=== PATIENT | female | born 1960 | race Caucasian/White ===

== ENCOUNTER 2020-12-11 12:22 | Emergency (ER) | payer MEDICARE, MEDICAID, SELFPAY ==
[2020-12-11 12:38] VITALS: BP 156/88; PULSE 69; RESP 16; TEMP 36.9; O2SAT 96; BMI 48.1
--- NOTE | 2020-12-11 13:56 | ED_ITS ---
HPI - Wound/Laceration General Chief Complaint: Wound/Laceration Stated Complaint: burn on abdomen Time Seen by Provider: 12/11/20 13:56 Source: patient Mode of arrival: ambulatory History of Present Illness HPI narrative: 60-year-old female with past medical history AFib, anxiety, asthma, COPD, depression, hypertension, HLD, panic disorder, presenting to the ED complaining of multiple diaz to abdomen S/P cooking fried chopra with hot grea se 1 week ago. Reports one area with continued pain, and yellow drainage. Also reports chills. Denies fever, diaz to other area Onset (ago): week(s) Related Data Previous Rx's Medication Instructions Recorded cephalexin 500 mg capsule 500 mg PO QID 7 Days #28 cap 12/11/20 silver sulfadiazine 1 % topical 1 appl TOPICAL BID #50 g 12/11/20 cream (Silvadene) Allergies Allergy/AdvReac Type Severity Reaction Status Date / Time aspirin [ASA] Allergy Severe SHORTNESS Unverified 01/01/20 14:55 OF BREATH bee pollen [BEE STINGS] Allergy Severe ANAPHYLAXIS Unverified 01/01/20 14:55 chlorzoxazone Allergy Severe HIVES Unverified 01/01/20 14:55 [From [facility]] Review of Systems Review of Systems: Constitutional: No Fever, No Chills Cardiovascular: No Chest Pain, No SOB Gastrointestinal: No Nausea, No Vomiting, No Abdominal pain Musculoskeletal: No joint pain Skin: + Skin Lesions, No rash Neuro: No Weakness Yes all other systems are reviewed and are negative PMFSH Past Medical History Attestation statement: The following information was validated with the patient. Medical History (Updated 12/11/20 @ 13:57 by ALLIE Becerra) Afib Aneurysm Anxiety Asthma COPD (chronic obstructive pulmonary disease) Depression HTN (hypertension) Hypercholesterolemia Obesity Panic disorder Social History Social History Advance Directives: Yes Advance Directives Information Provided: Yes Advance Directives on File: No Patient : No Physical Exam Vital Signs: Vital Signs: Last Vital Signs Temp 98.5 F 12/11/20 12:38 Pulse 69 12/11/20 12:38 Resp 16 12/11/20 12:38 BP 156/88 H 12/11/20 12:38 Pulse Ox 96 12/11/20 12:38 Body Mass Index 48.1 Const: General: cooperative and healthy appearing Orientation/consciousness: patient oriented x3 Limitations: no limitations HENMT: Head: Yes normal to inspection Ears: hearing grossly normal bilaterally General nose exam: Normal external nose present Face and sinus: Yes normal facial exam Eyes: General: appearance normal, both eyes and all related structures EOM: EOMs intact bilaterally Neck: Neck: Yes normal visual inspection Resp: Effort & Inspection: normal respiratory effort and no respiratory distress Cardio: Rate: regular rate GI: Inspection: Yes normal to inspection Palpation (GI): Soft to palpation, nontender, no guarding and not rigid Skin: Other: Healing small diaz to abdomen One burn 2 cm x 1 cm with granulation tissue, no active drainage, +ttp. No fluctuance or induration Rashes: no rashes Neuro: General: patient oriented x3 Gait exam (Neuro): Normal gait present Extrem: General: Yes normal to inspection MDM - Wound/Laceration MDM Narrative Medical decision making narrative: 60-year-old female with past medical history AFib, anxiety, asthma, COPD, depression, hypertension, HLD, panic disorder, presenting to the ED complaining of multiple diaz to abdomen S/P cooking fried chopra with hot grease 1 week ago. On exam VSS, NAD/well-appearing, physical exam as above. Concern for early infection/cellulitis Low concern for abscess Plan: Will discharge patient with Keflex and Silvadene Discharge Plan Discharge Clinical Impression: Burn Patient Disposition: Home, Self-Care Instructions: Superficial Burn (ED) Additional Instructions: Apply Silvadene to her burn twice daily Keflex as an antibiotic, take as prescribed If area begins to look infected, is red, there continues to be drainage, you have fever please return to the ED Please follow-up with her doctor Prescriptions: New silver sulfadiazine [Silvadene] 1 % cream 1 appl topical BID Qty: 50 RF: 0 cephalexin 500 mg capsule 500 mg PO QID 7 Days Qty: 28 RF: 0 Referrals: Yamilet Salazar MD [Primary Care Provider] - 5 days
== END 2020-12-11 14:13 | disposition home or self-care (01) ==
PROVIDERS: Emergency Provider Emergency Medicine; PCP Internal Medicine
DX: T21.02XA Burn of unspecified degree of abdominal wall, initial encounter (principal); X10.2XXA Contact with fats and cooking oils, initial encounter; I10 Essential (primary) hypertension; E78.5 Hyperlipidemia, unspecified; Y93.G3 Activity, cooking and baking; Y92.000 Kitchen of unspecified non-institutional (private) residence as the place of occurrence of the external cause; Y99.9 Unspecified external cause status; I48.91 Unspecified atrial fibrillation
CPT/HCPCS: 99283

== ENCOUNTER 2023-09-26 09:41 | Inpatient (IN) | payer MEDICARE, MEDICAID, SELFPAY ==
[2023-09-26] VITALS (16 sets, daily range): BP systolic 121–147; BP diastolic 69–77; PULSE 69–158; RESP 14–24; TEMP 36.5–36.8; O2SAT 4–97; BMI 48.4
--- NOTE | 2023-09-26 | ECG_ITS ---
Test Reason : PREVIOUS POOR QUALITY Blood Pressure : / mmHG Vent. Rate : 098 BPM Atrial Rate : 098 BPM P-R Int : 170 ms QRS Dur : 118 ms QT Int : 390 ms P-R-T Axes : 038 -30 059 degrees QTc Int : 497 ms Normal sinus rhythm Left axis deviation Non-specific intra-ventricular conduction delay Nonspecific ST and T wave abnormality Abnormal ECG When compared with ECG of 26-SEP-2023 10:00, QT has lengthened Referred By: Neida Goff Electronically Signed By:JESSICA QUINTERO
--- NOTE | ~2023-09-26 | XR_ITS ---
EXAMINATION: XR CHEST CLINICAL INFORMATION: Shortness of breath COMPARISON: None available. TECHNIQUE: Frontal view of the chest was obtained. FINDINGS: vascularity. LUNGS: Lungs are clear. No pneumothorax is seen. BONES: Bony skeleton is intact. XR/XR chest 1V IMPRESSION: Normal chest x-ray.
--- NOTE | 2023-09-26 09:56 | ECG_ITS ---
Test Reason : SOB Blood Pressure : / mmHG Vent. Rate : 070 BPM Atrial Rate : 000 BPM P-R Int : 000 ms QRS Dur : 100 ms QT Int : 418 ms P-R-T Axes : 000 003 030 degrees QTc Int : 451 ms Artifact in tracing Normal sinus rhythm Low voltage QRS Otherwise normal ECG No previous ECGs available Referred By: Generic ED Physician Electronically Signed By:JESSICA QUINTERO
[2023-09-26 10:15] LABS: MANUAL DIFF FLAG NO
[2023-09-26 10:16] LABS: Basophils Percent Auto 0.4 % (0-2); Eosinophils Absolute Auto 0.3 X10*3/uL (0.0-0.4); Eosinophils Percent Auto 3.7 % (0-4); Hematocrit 38.7 % (37.0-47.0); Hemoglobin 12.6 g/dl (12.0-16.0); Imm Gran Abs Auto 0.03 X10*3/uL (0.00-0.03); Imm Gran Pct Auto 0.3 % (0.0-0.4); Lymphocytes Absolute Auto 1.3 X10*3/uL (1.2-4.9); Lymphocytes Percent Auto 14.4 % (20-40); Mean Corpuscular HGB Conc 32.6 g/dl (31.0-35.0); Mean Platelet Volume 9.6 fL (9.4-12.3); Monocytes Absolute Auto 0.4 X10*3/uL (0.1-1.2); Monocytes Percent Auto 4.3 % (2-11); Neutrophils Absolute Auto 6.9 x10*3/uL (2.0-8.3); Neutrophils Percent Auto 76.9 % (45-73); Platelet Count 217 X10*3/uL (160-400); Red Blood Count 4.66 X10*6/uL (4.20-5.50); Red Cell Distribution Width 15.5 % (11.0-16.0)
[2023-09-26 10:34] LABS: Anion Gap 12 (12-20); Blood Urea Nitrogen 7 mg/dL (9-16); Calcium 9.3 mg/dL (8.4-10.2); Carbon Dioxide 29 mmol/L (22-29); Chloride 105 mmol/L (96-108); Creatinine Clr Calc Pharmacy 120.5; Estimated Glomerular Filt Rate > 60; Glucose Random 91 mg/dL (60-115); Potassium 3.9 mmol/L (3.3-5.1); Sodium 142 mmol/L (135-145)
[2023-09-26 10:40] LABS: B Type Natriuretic Peptide 47 pg/mL (<100)
[2023-09-26 10:45] LABS: Troponin-I High Sensitivity < 2.7 ng/L (<3.5-17.0)
--- NOTE | 2023-09-26 12:03 | ED.GENADULT ---
HPI - General Adult General Chief complaint: Dyspnea Stated complaint: SOB Time Seen by Provider: 09/26/23 11:59 History of Present Illness ED Provider: Dr. Mauricio HPI narrative: 62 y/o F patient; PMH atrial fibrillation, COPD, anxiety/depression, HTN, HLD; presents from home reporting three days of increasing shortness of breath associated with cough and congestion. Cough has been productive of greenish sputum. Patient has noticed increased dyspnea with minimal exertion. The patient denies: fever or chills, chest pain, nausea/vomiting, diarrhea. No known sick contacts. No active nicotine use. Patient had two home negative COVID tests. Related Data Previous Rx's ?Medication ?Instructions ?Recorded cephalexin 500 mg capsule 500 mg PO QID 7 days #28 caps 12/11/20 silver sulfadiazine 1 % topical 1 appl topical BID #50 grams 12/11/20 cream (Silvadene) Allergies Allergy/AdvReac Type Severity Reaction Status Date / Time aspirin [ASA] Allergy Severe SHORTNESS Verified 09/26/23 09:51 OF BREATH bee pollen [BEE STINGS] Allergy Severe ANAPHYLAXIS Verified 09/26/23 09:51 chlorzoxazone Allergy Severe HIVES Verified 09/26/23 09:51 [From [facility]] Review of Systems Review of Systems: Yes all other systems are reviewed and are negative Neurologic: Denies Sensory deficit (Neuro) PMFSH Past Medical History Attestation statement: The following information was validated with the patient. Source: old records reviewed Medical History Panic disorder Depression Anxiety Aneurysm Obesity Afib Asthma COPD (chronic obstructive pulmonary disease) Hypercholesterolemia HTN (hypertension) Social History Social History Advance Directives: No Advance Directives Information Provided: Yes Physical Exam ED Vital Signs: Vital Signs - 24 hr 09/26/23 09:50 09/26/23 10:17 09/26/23 12:16 Temperature 97.7 F 97.8 F 97.7 F Pulse Rate 72 69 70 Respiratory Rate 22 H 17 19 Blood Pressure 143/74 H 136/73 139/77 Pulse Oximetry 89 L 94 94 Oxygen Delivery Method Room Air Nasal Cannula Nasal Cannula Oxygen Flow Rate 2 2 09/26/23 12:37 09/26/23 13:35 09/26/23 14:35 Temperature 97.9 F Pulse Rate 82 92 Respiratory Rate 14 14 20 Blood Pressure 128/72 Pulse Oximetry 91 L Oxygen Delivery Method Nasal Cannula Oxygen Flow Rate 2 BMI result Body Mass Index 48.4 Patient is afebrile, mildly tachypnic, and hypoxic to 89% on RA requiring 2L NC. Const General: cooperative Orientation/consciousness: patient oriented x3 HENMT Head: Yes atraumatic Eyes General: appearance normal, both eyes and all related structures Pupils: Equal, round and reactive pupils present EOM: EOMs intact bilaterally Neck Neck: Yes full ROM, Yes supple and No tender Chest Chest palpation & inspection: normal inspection of the chest and normal palpation of entire chest wall Resp Effort & Inspection: able to speak in complete sentences and no respiratory distress Auscultation: wheezes Cardio Rate: regular rate Rhythm: regular rhythm Peripheral pulses: Peripheral pulses 2+ throughout GI Inspection: Yes normal to inspection Palpation (GI): Soft to palpation, not firm, nontender, no guarding and not rigid Auscultation: normal bowel sounds Neuro General: patient oriented x3 and moves all extremities Cranial nerves: Yes Equal, round and reactive pupils present Motor exam (neuro): 5/5 motor strength present throughout Sensory Exam: No Sensory deficit (Neuro) Course Course Course Narrative: Patient is afebrile, normotensive, and mildly hypoxic on 2L NC. Reviewed and agree with triage orders including EKG, CXR, and cardiorespiratory labs. EKG unremarkable. Laboratory studies without leukocytosis, significant anemi. Initial troponin negative. BNP unremarkable. Reevaluation(s) Reevaluation #1: Will provide Solu-Medol 125mg IV and Azithromycin 500mg IV for chronic lung disease exacerbation. Starting on bronchodilator protocol. Patient does NOT meet SIRS criteria at this time - only had tachypnea which can be attributed to chronic lung disease exacerbation CXR unremarkable for focal consolidation. Patient received Ventolin 5mg x2 with mild improvement however still requiring 2L NC for SpO2 87 - 88% at rest. Continues to have mild tachypnea. Patient will require admission for chronic lung disease exacerbation. Condition: Stable Medications Administered Discontinued Medications Generic Name Dose Route Start Last Admin Trade Name Freq PRN Reason Stop Dose Admin Albuterol Sulfate 5 mg/ 0 mg 09/26/23 12:33 09/26/23 12:37 Albuterol/Ipratropium 3 ml INHALE 09/26/23 12:34 1 each ONCE ONE Administration Albuterol Sulfate 5 mg/ 0 mg 09/26/23 13:31 09/26/23 13:35 Albuterol/Ipratropium 3 ml INHALE 09/26/23 13:32 1 each ONCE ONE Administration Azithromycin 500 mg/ Sodium 250 mls @ 125 mls/hr 09/26/23 12:19 09/26/23 12:40 Chloride IV 09/26/23 14:18 125 mls/hr ONCE ONE Administration Methylprednisolone Sodium Succinate 125 mg 09/26/23 12:19 09/26/23 12:40 Methylprednisolone Sod Succ 125 Mg/2 Ml Vial IVPUSH 09/26/23 12:20 125 mg ONCE ONE Administration Medical Decision Making Lab Data 09/26/23 10:09 09/26/23 10:09 Labs: Lab Results 09/26/23 Range/Units 10:09 WBC 9.0 (4.8-10.8) X10*3/uL RBC 4.66 (4.20-5.50) X10*6/uL Hgb 12.6 (12.0-16.0) g/dl Hct 38.7 (37.0-47.0) % MCV 83.0 (80.0-98.0) fL MCH 27.0 (27.0-33.0) pg MCHC 32.6 (31.0-35.0) g/dl RDW 15.5 (11.0-16.0) % Plt Count 217 (160-400) X10*3/uL MPV 9.6 (9.4-12.3) fL Immature Gran % (Auto) 0.3 (0.0-0.4) % Neut % (Auto) 76.9 H (45-73) % Lymph % (Auto) 14.4 L (20-40) % [place] % (Auto) 4.3 (2-11) % Eos % (Auto) 3.7 (0-4) % Baso % (Auto) 0.4 (0-2) % Lymph # (Auto) 1.3 (1.2-4.9) X10*3/uL [place] # (Auto) 0.4 (0.1-1.2) X10*3/uL Eos # (Auto) 0.3 (0.0-0.4) X10*3/uL Baso # (Auto) 0.0 (0.0-0.2) X10*3/uL Abs Immat Gran (auto) 0.03 (0.00-0.03) X10*3/uL Absolute Neuts (auto) 6.9 (2.0-8.3) x10*3/uL Absolute Nucleated RBC 0.000 (0.0-0.012) X10*3/uL Nucleated RBC % (auto) 0.0 (0.0-0.2) /100WBC Sodium 142 (135-145) mmol/L Potassium 3.9 (3.3-5.1) mmol/L Chloride 105 (96-108) mmol/L Carbon Dioxide 29 (22-29) mmol/L Anion Gap 12 (12-20) BUN 7 L (9-16) mg/dL Creatinine 0.67 (0.5-1.4) mg/dL Estim Creat Clear Calc 120.5 Estimated GFR > 60 Random Glucose 91 (60-115) mg/dL Calcium 9.3 (8.4-10.2) mg/dL Troponin I High Sens < 2.7 (<3.5-17.0) ng/L B-Natriuretic Peptide 47 (<100) pg/mL Independent Interpretation I performed an independent interpretation of an: EKG Interpretation: NSR 70BPM without focal ischemic changes, no prior EKG for comparison. Radiology Impression Discussion of test interpretation with radiology: I have reviewed the radiologist's reading. Radiologist Impression: EXAMINATION: XR CHEST CLINICAL INFORMATION: Shortness of breath COMPARISON: None available. TECHNIQUE: Frontal view of the chest was obtained. FINDINGS: vascularity. LUNGS: Lungs are clear. No pneumothorax is seen. BONES: Bony skeleton is intact. XR/XR chest 1V IMPRESSION: Normal chest x-ray. Discharge Plan Discharge Clinical Impression: Acute exacerbation of chronic obstructive airways disease Patient Disposition: Admitted As Inpatient Print Language: Spanish
[2023-09-26] MEDS: Albuterol Sulfate 5 MG, Albuterol/Iprat 2.5/0.5MG 3 ML 3 ML INHALE ×3 (12:37→15:11)
[2023-09-26] MEDS: Azithromycin 500 MG in 0.9 % Sodium Chloride 250 ML 125 MG IV (12:40)
[2023-09-26] MEDS: methylPREDNISolone Sod Succ 125 MG/2 ML VIAL IVPUSH (12:40)
--- NOTE | 2023-09-26 15:03 | P.HPHOSP_ITS ---
History of Present Illness Date of Service: 09/26/23 Attending physician on admission: Marlena Naylor Chief Complaint: SOB, cough Pt is a 62-year-old female with a PMH significant for?paroxysmal AFib not on anticoagulation, COPD, HTN, HLD, CYNDI on CPAP, GERD, and bipolar disorder who presents to the ED with increased wheezing, SOB, cough, and fatigue times 2 days. Patient states that she went to a wedding last Sunday and then woke up on Sunday with postnasal drip and sore throat. Patient assumed was related to seasonal allergies, though symptoms worsened SOB progressed and yesterday patient noticed she was having increased SOB, TRUJILLO, cough productive of greenish sputum, and her O2 saturation was dropping below 90%. She has not on home O2. Symptoms persisted this morning and patient attempted to elicit PCP, but they sent her instead to the ED for further evaluation. Denies fever, chills, nausea, vomiting, abdominal pain. No myalgias. Denies chest pain/pressure, palpitations. Patient reports infrequent COPD exacerbations with last hospitalization a few years ago. In the ED pt was tachycardic up to 92, tachypneic up to 22 hypertensive up to 143/74, and hypoxic as low as 89% on RA. Labs were grossly unremarkable. No leukocytosis. Stable H&H. No significant electrolyte abnormalities. Renal function baseline. Troponin negative. BNP WNL at 47. CXR showed no acute cardiopulmonary disease. EKG demonstrated accelerated junctional rhythm, though poor quality. Pt was treated with DuoNebs, Solu-Medrol, and azithromycin. Pt will be admitted to the hospital for treatment and further evaluation of acute hypoxic respiratory failure in the setting of COPD exacerbation. Review of Systems 2 Review of Systems: SOB, TRUJILLO Productive cough Wheezing, difficulty breathing Hypoxia Sore throat, postnasal drip Denies fever, chills, nausea, vomiting, abdominal pain No chest pain/pressure, palpitations [facility] Medical History Panic disorder Depression Anxiety Aneurysm Obesity Afib Asthma COPD (chronic obstructive pulmonary disease) Hypercholesterolemia HTN (hypertension) Social History Advance Directives: No Advance Directives Information Provided: Yes Meds Allergies Allergy/AdvReac Type Severity Reaction Status Date / Time aspirin [ASA] Allergy Severe SHORTNESS Verified 09/26/23 09:51 OF BREATH bee pollen [BEE STINGS] Allergy Severe ANAPHYLAXIS Verified 09/26/23 09:51 chlorzoxazone Allergy Severe HIVES Verified 09/26/23 09:51 [From [facility]] Home Medications ?Medication ?Instructions ?Recorded ?Confirmed ?Last Taken ?Type albuterol sulfate 90 mcg/actuation 2 puff inhalation Q4H PRN wheezing 09/26/23 Unknown History aerosol inhaler (Ventolin HFA) amlodipine 2.5 mg tablet 2.5 mg PO DAILY 09/26/23 Unknown History atorvastatin 40 mg tablet 40 mg PO BEDTIME 09/26/23 Unknown History citalopram 40 mg tablet 40 mg PO BEDTIME 09/26/23 Unknown History clopidogrel 75 mg tablet 75 mg PO DAILY 09/26/23 Unknown History epinephrine 0.3 mg/0.3 mL 0.3 mg IM NEEDED 09/26/23 Unknown History injection, auto-injector ipratropium 0.5 mg-albuterol 3 mg 3 ml inhalation Q6H PRN wheezing 09/26/23 Unknown History (2.5 mg base)/3 mL nebulization soln losartan 25 mg tablet 25 mg PO DAILY 09/26/23 Unknown History metoprolol succinate 25 mg 25 mg PO DAILY 09/26/23 Unknown History tablet,extended release 24 hr montelukast 10 mg tablet 10 mg PO BEDTIME 09/26/23 Unknown History nitroglycerin 0.4 mg sublingual mg sublingual 09/26/23 Unknown History tablet pantoprazole 20 mg tablet,delayed 20 mg PO DAILY@0630 09/26/23 Unknown History release roflumilast 500 mcg tablet 500 mcg PO DAILY 09/26/23 Unknown History tiotropium bromide 1.25 2 puff inhalation DAILY 09/26/23 Unknown History mcg/actuation mist for inhalation (Spiriva Respimat) tizanidine 4 mg tablet 4 mg PO Q8H PRN muscle spasm 09/26/23 Unknown History trazodone 100 mg tablet 100 mg PO BEDTIME 09/26/23 Unknown History Physical Exam 2 Vital Signs and Narrative: Vital Signs: Last Vital Signs Temp 97.9 F 09/26/23 14:35 Pulse 92 09/26/23 14:35 Resp 20 09/26/23 14:35 BP 128/72 09/26/23 14:35 Pulse Ox 91 L 09/26/23 14:35 O2 Del Method Nasal Cannula 09/26/23 14:35 O2 Flow Rate 2 09/26/23 14:35 BMI result Body Mass Index 48.4 Constitutional: Alert, in no acute distress. Mental Status: Oriented to person, place and time. Eyes: Pupils are equal, round, and reactive to light. Ear, Nose, and Throat: Oropharynx clear, mucous membranes moist. Ears and nose without deformities. Trachea midline. Respiratory: Significant diffuse wheezing bilaterally.. Some increased work of breathing especially with change in position. Cardiovascular: S1, S2 regular rhythm, tachycardic. No murmurs, rubs, or gallops. Gastrointestinal: Abdomen soft, non-tender, non-distended. Normal bowel sounds. Neurologic: Cranial nerves II-XII are grossly intact bilaterally. No focal neurological deficits. Moves all extremities spontaneously. Skin: Warm, dry. Musculoskeletal: No cyanosis or clubbing. Extremities: No edema. Psychiatric: Normal mood and affect. Results Labs 09/26/23 10:09 09/26/23 10:09 Labs: Laboratory Results - last 24 hr 09/26/23 10:09 MCV 83.0 MCH 27.0 MCHC 32.6 RDW 15.5 Plt Count 217 MPV 9.6 Immature Gran % (Auto) 0.3 Neut % (Auto) 76.9 H Lymph % (Auto) 14.4 L [place] % (Auto) 4.3 Eos % (Auto) 3.7 Baso % (Auto) 0.4 Lymph # (Auto) 1.3 [place] # (Auto) 0.4 Eos # (Auto) 0.3 Baso # (Auto) 0.0 Abs Immat Gran (auto) 0.03 Absolute Neuts (auto) 6.9 Absolute Nucleated RBC 0.000 Nucleated RBC % (auto) 0.0 Anion Gap 12 Estim Creat Clear Calc 120.5 Estimated GFR > 60 Random Glucose 91 Calcium 9.3 Troponin I High Sens < 2.7 B-Natriuretic Peptide 47 Imaging Radiologist's Impressions: Impressions Chest X-Ray 09/26/23 10:32 IMPRESSION: Normal chest x-ray. Assessment and Plan (1) Acute exacerbation of chronic obstructive airways disease: Status: Acute Plan Pt is a 62-year-old female with a PMH significant for?paroxysmal AFib not on anticoagulation, COPD, HTN, CAD/HLD, CYNDI on CPAP, GERD, and bipolar disorder who presents to the ED with increased wheezing, SOB, cough, and fatigue times 2 days. Pt will be admitted to the hospital for treatment and further evaluation of acute hypoxic respiratory failure in the setting of COPD exacerbation. Acute hypoxic respiratory failure in the setting of COPD exacerbation Increased SOB, TRUJILLO, difficulty breathing, cough, desatting into the 80s on RA, wheezing upon auscultation despite multiple treatments in the ED Patient does not meet sepsis criteria: No indication for infection/pneumonia, tachycardia secondary to albuterol use Will treat with DuoNebs, Solu-Medrol, guaifenesin, and loratadine Will treat with azithromycin for pleiotropic effects, started 09/26/2023 Titrate supplemental O2 >92, wean as tolerated Monitor respiratory status Paroxysmal AFib Continue metoprolol Unclear why not on anticoagulation Should follow up outpatient with Cardiology CAD/HLD Continue statin, Plavix, isosorbide mononitrate HTN Continue losartan GERD Continue pantoprazole Full Code Attending:?Dr. Naylor DVT Prophylaxis: Lovenox Pt will require a hospitalization of at least two nights for treatment of?acute hypoxic respiratory failure in the setting of COPD exacerbation. Patient will require administration of IV steroids, breathing treatments, and supplemental oxygen with close monitoring of respiratory status. Quality Stroke Does the patient have a stroke diagnosis?: No VTE Prior VTE?: No VTE Risk Level:: Medical - moderate - high VTE Device Contraindication: Treatment Not Indicated VTE Drug Contraindication: N/A - Med Ordered
[2023-09-26] MEDS: Loratadine 10 MG TABLET PO (15:59)
[2023-09-26] MEDS: Enoxaparin Sodium 40 MG/0.4 ML SYRINGE SUBCUT (15:59)
[2023-09-26] MEDS: 0.9 % Sodium Chloride Flush 3 ML SYRINGE IVFLUSH (16:00)
--- NOTE | 2023-09-26 16:16 | PC.NURSE ---
SOB x 2 days, recent cold like sx. H/O COPD, no 02 at home, on 2lpm via nc at this time sat 94% Reports increased TRUJILLO, LS exp wheezing and diminished at bases. Occasional cough noted. Skin pwd. Speaking full sentences. NSR on tele
--- NOTE | 2023-09-26 16:21 | PHA.MEDREC ---
Pharmacy Consult ? Medication Reconciliation Pharmacy has completed the medication reconciliation. Spoke with patient to confirm med list. Patient states she is no longer taking Bupropion 300 mg daily, Isosorbide mononitrate 30 mg daily. patient says her Advair 1 inh bid was changed to serevent 1 inh bid.
--- NOTE | 2023-09-26 16:31 | PC.NURSE ---
Tachy briefly up to 170s, dizzy and palpitations at this time. Pt states ongoing issue, has been sent home with Holter monitor but unsuccessful capturing episodes. Neida KELLEY aware, will place pt on tele
[2023-09-26 16:42] LABS: Procalcitonin 0.03 ng/mL
--- NOTE | 2023-09-26 16:43 | HE.PHANOTE ---
RPH double check, inhaler is airduo respiclick
--- NOTE | 2023-09-26 17:03 | ECG_ITS ---
Test Reason : A- FIB Blood Pressure : / mmHG Vent. Rate : 146 BPM Atrial Rate : 000 BPM P-R Int : 000 ms QRS Dur : 118 ms QT Int : 234 ms P-R-T Axes : 000 -40 191 degrees QTc Int : 364 ms Atrial fibrillation with rapid ventricular response with premature ventricular or aberrantly conducted complexes Left axis deviation Intra-ventricular conduction delay Abnormal ECG When compared with ECG of 26-SEP-2023 16:32, Atrial fibrillation has replaced Sinus rhythm Vent. rate has increased BY 48 BPM T wave inversion now evident in Inferior leads Inverted T waves have replaced nonspecific T wave abnormality in Lateral leads Referred By: Neida Goff Electronically Signed By:JESSICA QUINTERO
--- NOTE | 2023-09-26 17:04 | ECG_ITS ---
Test Reason : A- FIB Blood Pressure : / mmHG Vent. Rate : 141 BPM Atrial Rate : 141 BPM P-R Int : 226 ms QRS Dur : 122 ms QT Int : 224 ms P-R-T Axes : 016 -39 182 degrees QTc Int : 343 ms Atrial fibrillation with rapid ventricular response Left axis deviation Non-specific intra-ventricular conduction delay Nonspecific ST and T wave abnormality Ventricular tachycardia (ventricular or supraventricular with aberration) Abnormal ECG When compared with ECG of 26-SEP-2023 17:03, No significant changes seen Referred By: Neida Goff Electronically Signed By:JESSICA QUINTERO
[2023-09-26] MEDS: Metoprolol Tartrate 5 MG/5 ML VIAL IVPUSH (17:30)
--- NOTE | 2023-09-26 17:37 | PC.NURSE ---
Addendum entered by Patti Paula 09/26/23 17:44: Episode after pt attempted ambulating to bathroom Original Note: Pt noted with another episode rapid A fib in addition to V tach, symptomatic at that time with palpitations and dizziness. Jennifer KELLEY to bedside with Dr Peck. Cardizem 15mg total given with Metoprolol 5mg IVP. Pt A fib rate 80-909s with occasional up to 120s. Pt sitting upright in bed and feels better at this time. Pt sl pale, warm and dry. Pacer pads in place for caution. Plan to transport to [facility] for further evaluation.
[2023-09-26 17:55] LABS: Magnesium 1.9 mg/dL (1.6-2.6)
[2023-09-26] MEDS: Amiodarone HCL 200 MG TABLET 400 MG PO (18:03)
[2023-09-26 18:05] LABS: Troponin-I High Sensitivity < 2.7 ng/L (<3.5-17.0)
[2023-09-26] MEDS: Albuterol/Iprat 2.5/0.5MG 3 ML AMPUL.NEB INHALE (19:08)
--- NOTE | 2023-09-26 19:20 | P.EN_ITS ---
Event Note Date of Service: 09/26/23 Event Note: Patient got up to go to the bathroom and on her way back to her room suddenly felt palpitations, lightheadedness, and dizziness, and was noted to have episodes of tachycardia up into the 180s. EKG revealed patient was in atrial fibrillation with RVR. Patient was given diltiazem 10 mg IV x2 doses. During administration of 2nd dose patient was noted to have 5-10 second runs of monomorphic wide complexes concerning for ventricular tachycardia. Patient was given IV metoprolol 5 mg. Cardiology was consulted and patient was started on amiodarone 400 mg b.i.d.. Contacted [facility] for possible transfer to [facility] where patient is normally seen for cardiology. Patient recently has had significant cardiac workup, including nuclear stress test, echocardiogram, and cardiac catheterization. Echocardiogram found mild to moderate mitral valve regurgitation, but little else. LVEF estimated at 61%. Underwent high-risk stress test and then cardiac catheterization on 07/30/2023 that did not show any significant obstructive CAD. Patient's vitals otherwise stable, and after much discussion thought patient was stable enough to remain here for the time being. She has not had any recurrent episodes of V-tach following amiodarone. If patient becomes unstable or has recurrent ventricular tachycardia, will transfer patient to [facility]. Cardiology to follow and will see patient in the morning. Time Spent With Patient Time: Total time managing care of this patient today ____ minutes.
--- NOTE | 2023-09-26 19:46 | PC.NURSE ---
Assumed care of pt. Pt lying on stretcher, breathing treatment from respiratory in process. Pt with AFIB on monitor, rate variances from 100's to 160-170, provider made aware. Pt denies acute distress at this time. Pending orders for rate control.
--- NOTE | 2023-09-26 20:56 | ECG_ITS ---
Test Reason : HGH HEART RATE Blood Pressure : / mmHG Vent. Rate : 092 BPM Atrial Rate : 092 BPM P-R Int : 160 ms QRS Dur : 118 ms QT Int : 400 ms P-R-T Axes : 040 -24 067 degrees QTc Int : 494 ms Normal sinus rhythm Non-specific intra-ventricular conduction delay Nonspecific ST abnormality Prolonged QT Abnormal ECG When compared with ECG of 26-SEP-2023 17:04, Rhythm change Referred By: Neida Goff Electronically Signed By:JESSICA QUINTERO
--- NOTE | 2023-09-26 21:19 | PC.NURSE ---
At approx 2056, thi RN was notified by the community living specialist at the cardiac monitor technician that the pat was in what appeared to be a V-Tach rhythm, but was not breaking from that rhythm. On observing the patient, pt had a pulse and was asymptomatic for CP/SOB (other than baseline from COPD). A Rapid Response was called at 2056 by this RN, and the crash cart was brought to the room. An EKG was performed by the lead based paint technician at which point the patient had broken the dysrhythmia and returned to NSR (approx 92 bpm) at approx 2100. Of note, there are time variances between the cardiac monitor technician software and the EKG machine - the EKG showing the NSR at 2056:58 and the monitor strip showing continued V-TACH from approx 256-2100. vice provost and house repairer aware. No interventions ordered at the time of the RR. Pending orders for additional medications per inpatient providers at bedside. Possible admit to ICU to follow.
[2023-09-26] MEDS: Amiodarone HCL 900 MG in 0.9 % Sodium Chloride 500 ML 17.27 MG IVCONT (21:46)
[2023-09-26] MEDS: Escitalopram Oxalate 20 MG TABLET PO (21:52)
[2023-09-26] MEDS: methylPREDNISolone Sod Succ 40 MG/ML VIAL IVPUSH (21:52)
[2023-09-26] MEDS: Atorvastatin Calcium 40 MG TABLET PO (21:52)
--- NOTE | 2023-09-26 21:55 | PC.NURSE ---
Per Dejon Goff, all meds held documented as not given via verbal discussion at bedside, all other meds administered as ordered.
--- NOTE | 2023-09-26 22:06 | PM.DS ---
DS: Providers Provider Date of Service: 09/26/23 Date of admission: 09/26/23 15:37 Primary care physician: Yamilet Salazar MD Consults: 09/26/23 19:43 Consult to Cardiology Routine Consulting Provider: [facility] Reason for consultation: AFib w/RVR, V Tach DS: Transfer Hospital Acceptance Reason for Transfer: Pt with paroxysmal and prolonged runs of ventricular tachycardia despite treatment with metoprolol and amiodarone. Patient will need to be transferred to a higher level of tertiary care. Patient has been accepted to [facility] critical care unit. Name of Facility: [facility] Accepting Provider: Dr. Valentin DS: Diagnosis Discharge Diagnosis (1) Acute exacerbation of chronic obstructive airways disease: Status: Acute (2) Atrial fibrillation with RVR: Status: Acute (3) Ventricular tachycardia: Status: Acute DS: Summary Status at Discharge Cognitive/behavioral status at discharge: From the admission HPI: Pt is a 62-year-old female with a PMH significant for?paroxysmal AFib not on anticoagulation, COPD, HTN, HLD, CYNDI on CPAP, GERD, and bipolar disorder who presents to the ED with increased wheezing, SOB, cough, and fatigue times 2 days. Patient states that she went to a wedding last Sunday and then woke up on Sunday with postnasal drip and sore throat. Patient assumed was related to seasonal allergies, though symptoms worsened SOB progressed and yesterday patient noticed she was having increased SOB, TRUJILLO, cough productive of greenish sputum, and her O2 saturation was dropping below 90%. She has not on home O2. Symptoms persisted this morning and patient attempted to elicit PCP, but they sent her instead to the ED for further evaluation. Denies fever, chills, nausea, vomiting, abdominal pain. No myalgias. Denies chest pain/pressure, palpitations. Patient reports infrequent COPD exacerbations with last hospitalization a few years ago. In the ED pt was tachycardic up to 92, tachypneic up to 22, hypertensive up to 143/74, and hypoxic as low as 89% on RA. Labs were grossly unremarkable. No leukocytosis. Stable H&H. No significant electrolyte abnormalities. Renal function baseline. Troponin negative. BNP WNL at 47. CXR showed no acute cardiopulmonary disease. EKG demonstrated accelerated junctional rhythm, though poor quality. Pt was treated with DuoNebs, Solu-Medrol, and azithromycin. Pt will be admitted to the hospital for treatment and further evaluation of acute hypoxic respiratory failure in the setting of COPD exacerbation. Hospital course: Patient got up to go to the bathroom and on her way back to her room suddenly felt palpitations, lightheadedness, and dizziness, and was noted to have episodes of tachycardia up into the 180s. EKG revealed patient was in atrial fibrillation with RVR. Patient was given diltiazem 10 mg IV x2 doses. During administration of 2nd dose patient was noted to have 5-10 second runs of monomorphic wide complexes concerning for ventricular tachycardia. Patient was given IV metoprolol 5 mg. Cardiology was consulted and patient was started on amiodarone 400 mg b.i.d.. Contacted [facility]iology for possible transfer to [facility] where patient is normally seen for cardiology. Patient recently has had significant cardiac workup, including nuclear stress test, echocardiogram, and cardiac catheterization. Echocardiogram found mild to moderate mitral valve regurgitation, but little else. LVEF estimated at 61%. Underwent high-risk stress test and then cardiac catheterization on 07/30/2023 that did not show any significant obstructive CAD. Patient's vitals at that time were otherwise stable, and after much discussion patient was deemed by both [facility] and [facility] cardiology to be stable enough to remain at [facility] for the time being. However pt began going in and out of AFib and NSR and then went into sustained ventricular tachycardia at 20:57 that lasted for approximately 4 minutes. Patient was asymptomatic during the episode and V-tach broke without additional intervention; patient was noted to be in normal sinus rhythm afterwards. Cardiology was consulted and patient was started on an amiodarone drip at 0.5 mg/min without a loading dose. Pt will be transferred to [facility] ICU under the care of Dr. Valentin. Functional status at discharge: independent ambulation Overall status at discharge: patient is not back to baseline Time Attestation Discharge Coordination Time (in mins): 60 minutes Quality: Safe Use of Opioids Does Pt have an Active Cancer Diagnosis on the Problem List?: No Quality: Stroke Does the patient have a stroke diagnosis?: No Physical Exam Vital Signs: Vital Signs: Last Vital Signs Temp 97.9 F 09/26/23 14:35 Pulse 105 H 09/26/23 20:01 Resp 14 09/26/23 19:16 BP 139/75 09/26/23 18:38 Pulse Ox 96 09/26/23 18:38 O2 Del Method Room Air 09/26/23 18:38 O2 Flow Rate 4 09/26/23 17:40 BMI result Body Mass Index 48.4 General: AOx3, no acute distress Resp: Significant diffuse expiratory wheezing bilaterally CVS: S1, S2, RRR GI: +BS, NT, no distention Skin: Warm, dry Neuro: Cranial nerves II-XII grossly intact bilaterally. Motor grossly intact bilaterally Extremities: No edema Psych: Appropriate affect DS: Data Data Completed and Pending Labs on day of discharge: Laboratory Results - last 24 hr 09/26/23 09/26/23 10:09 17:37 WBC 9.0 RBC 4.66 Hgb 12.6 Hct 38.7 MCV 83.0 MCH 27.0 MCHC 32.6 RDW 15.5 Plt Count 217 MPV 9.6 Immature Gran % (Auto) 0.3 Neut % (Auto) 76.9 H Lymph % (Auto) 14.4 L Nelson % (Auto) 4.3 Eos % (Auto) 3.7 Baso % (Auto) 0.4 Lymph # (Auto) 1.3 Nelson # (Auto) 0.4 Eos # (Auto) 0.3 Baso # (Auto) 0.0 Abs Immat Gran (auto) 0.03 Absolute Neuts (auto) 6.9 Absolute Nucleated RBC 0.000 Nucleated RBC % (auto) 0.0 Sodium 142 Potassium 3.9 Chloride 105 Carbon Dioxide 29 Anion Gap 12 BUN 7 L Creatinine 0.67 Estim Creat Clear Calc 120.5 Estimated GFR > 60 Random Glucose 91 Calcium 9.3 Magnesium 1.9 Troponin I High Sens < 2.7 < 2.7 B-Natriuretic Peptide 47 Procalcitonin 0.03 Discharge Plan Discharge Anticipated Discharge Date/Time: 09/26/23 22:30 Patient Disposition: Xfer Acute Care Hospital Discharge Diagnosis: Ventricular tachycardia Referrals: Yamilet Salazar MD [Primary Care Provider] - 1 Week Discharge Medications: Continued citalopram 40 mg tablet 40 mg PO BEDTIME tizanidine 4 mg tablet 4 mg PO Q8H PRN (Reason: muscle spasm) amlodipine 2.5 mg tablet 2.5 mg PO DAILY pantoprazole 20 mg tablet,delayed release (DR/EC) 20 mg PO DAILY@0630 trazodone 100 mg tablet 100 mg PO BEDTIME metoprolol succinate 25 mg tablet extended release 24 hr 25 mg PO DAILY albuterol sulfate [Ventolin HFA] 90 mcg/actuation HFA aerosol inhaler 2 puff inhalation Q4H PRN (Reason: wheezing) Spiriva Respimat 1.25 mcg/actuation mist 2 puff inhalation DAILY atorvastatin 40 mg tablet 40 mg PO BEDTIME ipratropium-albuterol 0.5 mg-3 mg(2.5 mg base)/3 mL solution for nebulization 3 ml inhalation Q6H PRN (Reason: wheezing) clopidogrel 75 mg tablet 75 mg PO DAILY losartan 25 mg tablet 25 mg PO DAILY nitroglycerin 0.4 mg tablet, sublingual 0.4 mg sublingual Q5M PRN (Reason: Chest Pain) Rx Instructions: max of 3 doses montelukast 10 mg tablet 10 mg PO BEDTIME epinephrine 0.3 mg/0.3 mL auto-injector 0.3 mg IM NEEDED PRN (Reason: Allergic Reaction) roflumilast 500 mcg tablet 500 mcg PO DAILY ibuprofen 800 mg Tablet 800 mg PO TID PRN (Reason: Pain) sumatriptan succinate 50 mg Tablet 50 mg PO DAILY PRN (Reason: Migraine Headache) Rx Instructions: do not exceed 4 doses per 24 hrs fluticasone propion-salmeterol [AirDuo RespiClick] 232-14 mcg/actuation Aerosol Powdr Breath Activated 1 inh INHALATION BID Discharge Orders: Discharge Order (Routine); Ordered 09/26/23 Ordered By: Neida Goff Activity on Discharge: As tolerated Stand Alone Forms: Patient Portal Discharge page Print Language: Albanian Care Plan Goals: See below Health Concerns: Monitor for arrhythmias Monitor respiratory status Plan of Treatment: Continue amiodarone drip during transfer Continue treatment for acute hypoxic respiratory failure in the setting of COPD exacerbation Assessment: See discharge summary
[2023-09-27 12:21] LABS: Adenovirus PCR Not Detected (Not Detect.); Bordetella parapertussis PCR Not Detected (Not Detect.); Bordetella pertussis PCR Not Detected (Not Detect.); Chlamydia pneumoniae PCR Not Detected (Not Detect.); Coronavirus 229E PCR Not Detected (Not Detect.); Coronavirus HKU1 PCR Not Detected (Not Detect.); Coronavirus NL63 PCR Not Detected (Not Detect.); Coronavirus OC43 PCR Not Detected (Not Detect.); Human metapneumovirus PCR Not Detected (Not Detect.); Influenza A PCR Not Detected (Not Detect.); Influenza B PCR Not Detected (Not Detect.); Mycoplasma pneumoniae PCR Not Detected (Not Detect.); Parainfluenza 1 PCR Not Detected (Not Detect.); Parainfluenza 2 PCR Not Detected (Not Detect.); Parainfluenza 3 PCR Not Detected (Not Detect.); Parainfluenza 4 PCR Not Detected (Not Detect.); RSV PCR Not Detected (Not Detect.); Rhino/Enterovirus PCR Detected (Not Detect.)
[2023-09-27 12:33] LABS: SARS-CoV-2 PCR Not Detected (Not Detect.)
[2023-09-29 22:48] LABS: Strep Pneumo Ag urine Not Detected (Not Detected)
[2023-10-01 06:44] LABS: Legionella Ag Urine Not Detected (Not Detected)
== END 2023-09-26 23:00 | disposition short-term general hospital (02) | DRG 190 ==
LOC: HO.ED 14:34 → HO.EDOVER 15:52
PROVIDERS: Admitting Provider Student in an Organized Health Care Education/Training Program; Emergency Provider Emergency Medicine; PCP Internal Medicine; Visit Provider Internal Medicine
DX: J44.1 Chronic obstructive pulmonary disease with (acute) exacerbation (principal); J96.01 Acute respiratory failure with hypoxia; I47.20 Ventricular tachycardia, unspecified; I25.10 Atherosclerotic heart disease of native coronary artery without angina pectoris; I10 Essential (primary) hypertension; E78.5 Hyperlipidemia, unspecified; I48.0 Paroxysmal atrial fibrillation; G47.33 Obstructive sleep apnea (adult) (pediatric); K21.9 Gastro-esophageal reflux disease without esophagitis; Z20.822 Contact with and (suspected) exposure to COVID-19; Z79.02 Long term (current) use of antithrombotics/antiplatelets; Z79.51 Long term (current) use of inhaled steroids; Z79.899 Other long term (current) drug therapy
CPT/HCPCS: 36415; 71045; 80048; 83735; 83880; 84145; 84484; 85025; 87449; 87633; 87899; 93005; 94640; 99285; J0282; J0456; J1650; J2919

== ENCOUNTER → 2023-09-26 09:56 | Outpatient (BNV) | payer MEDICARE, MEDICAID, SELFPAY | PROVIDERS: Admitting Provider Student in an Organized Health Care Education/Training Program; Emergency Provider Emergency Medicine; PCP Internal Medicine; Visit Provider Internal Medicine | DX: R94.31 Abnormal electrocardiogram [ECG] [EKG] (principal) | CPT/HCPCS: 93010 ==

== ENCOUNTER → 2023-09-26 15:37 | Outpatient (BNV) | payer MEDICARE, MEDICAID, SELFPAY | PROVIDERS: Admitting Provider Student in an Organized Health Care Education/Training Program; Emergency Provider Emergency Medicine; PCP Internal Medicine; Visit Provider Student in an Organized Health Care Education/Training Program | DX: J44.1 Chronic obstructive pulmonary disease with (acute) exacerbation (principal); I48.91 Unspecified atrial fibrillation; I47.20 Ventricular tachycardia, unspecified; J96.01 Acute respiratory failure with hypoxia | CPT/HCPCS: 99236; 99499 ==